=== PATIENT | female | born 1970 | race Caucasian/White ===

== ENCOUNTER 2022-02-14 14:29 | Outpatient (CLI) | payer BC, SELFPAY | END 2022-02-14 14:30 | disposition home or self-care (01) | LOC: LKVREF 02-19 12:37 | PROVIDERS: Visit Provider Nurse Practitioner Family | DX: R30.0 Dysuria (principal); N39.0 Urinary tract infection, site not specified | CPT/HCPCS: 87086; 87186 ==

== ENCOUNTER 2022-12-27 13:52 | Outpatient (CLI) | payer BC, SELFPAY | END 2022-12-27 13:53 | disposition home or self-care (01) | LOC: NFLDREF 12-28 10:40 | PROVIDERS: Visit Provider Nurse Practitioner Family | DX: R30.0 Dysuria (principal); N39.0 Urinary tract infection, site not specified | CPT/HCPCS: 87086; 87186 ==

== ENCOUNTER 2024-08-11 12:11 | Outpatient (CLI) | payer BC, SELFPAY | END 2024-08-11 12:12 | disposition home or self-care (01) | LOC: NFLDREF 08-18 17:16 | PROVIDERS: Visit Provider Physician Assistant | DX: N30.00 Acute cystitis without hematuria (principal); B96.20 Unspecified Escherichia coli [E. coli] as the cause of diseases classified elsewhere | CPT/HCPCS: 87086 ==

== ENCOUNTER 2025-01-13 12:44 | Emergency (ER) | payer BC, SELFPAY ==
--- OUTSIDE RECORDS SUMMARY | 2025-01-13 12:49 | XMS_ITS | Clinical Summary ---
Author Organization [employer] [facility] [employer] [facility] Address Formerly [facility] [place] [address] Care Team Providers Care Heat Curer Name Role Phone [facility] + Allergies No known active allergies Medications acetaminophen (TYLENOL) 325 mg tablet Take 1-2 tablets by mouth every 4 hours if needed for Pain. Max acetaminophen dose: 4000mg in 24 hrs. 100 tablet 0 3 Active oxyCODONE-acet aminophen, 5-325 mg, (PERCOCET) per tablet Take 1-2 tablets by mouth every 4 hours if needed for Pain. Max acetaminophen dose: 4000mg in 24 hrs. 30 tablet 0 3 Active Active Problems Problem Noted Date Diagnosed Date Chronic pelvic pain in female 11/03/2012 Family History Medical History Relation Name Comments Good Health Father Good Health Mother Good Health Sister Relation Name Status Comments Father Alive Mother Alive Sister Alive Social History Tobacco Use Types Packs/Day Years Used Date Smoking Tobacco: Never Smokeless Tobacco: Never Alcohol Use Standard Drinks/Week Comments Yes 0 (1 standard drink = 0.6 oz pur e alcohol) 1 drink per week Comments No Sex and Gender Information Value Date Recorded Sex Assigned at Not on file Legal Sex Female 11:41 AM CDT Gender Identity Not on file Sexual Orientation Not on file Obstetrics History Last Filed Vital Signs Vital Sign Reading Time Taken Comments Blood Pressure 145/95 03/15/2019 9:51 AM COAGULATION OPERATOR Pulse 78 03/15/2019 9:51 AM COAGULATION OPERATOR Temperature 36.3 C (97.3 F) 03/15/2019 9:51 AM COAGULATION OPERATOR Respiratory Rate 20 03/15/2019 9:51 AM COAGULATION OPERATOR Oxygen Saturation 96% 03/15/2019 9:51 AM COAGULATION OPERATOR Inhaled Oxygen Concentration - - Weight 95.3 kg (210 lb) 03/15/2019 9:51 AM COAGULATION OPERATOR Height 162.6 cm (5' 4) 03/15/2019 9:51 AM COAGULATION OPERATOR Body Mass Index 36.05 03/15/2019 9:51 AM COAGULATION OPERATOR Plan of Treatment Health Maintenance Due Date Last Done Comments Tetanus booster 10/17/1982 Depression screening for age 12+ 1983 HIV for age 15-65 10/17/1986 BMI (ht and wt on same day) for age 18+ 10/17/1989 Hepatitis C screening for age 18-79 10/17/1989 Hepatitis B series for 19+ (1 of 3 - 19+ 3-dose series ) 10/17/1990 Pap test for age 21-65 10/17/1992 Colonoscopy through age 75 10/17/2016 Lipids for age 45-75 10/17/2016 Mammogram for age 45-75 10/17/2016 Pneumococcal series for age 50+ (1 of 1 - PCV) 022 Zoster (shingles) series for age 50+ (1 of 2) 10/18/19 22 COVID-19 vaccine series ( - 2023- season) Influenza Vaccine (#1) 2024 RSV vaccine for adults or pr egnancy (1 - 1-dose 75+ series) 10/17/2046 Insurance [facility] Advance Directives * Full Code (Latest Code Status on File) Date Activated Date Inactivated Comments 11/03/2013 7:05 AM 11/04/2013 2:53 AM * Full Code Date Activated Date Inactivated Comments 10/13/2013 8:02 AM 10/14/2013 2:51 AM * Full Code Date Activated Date Inactivated Comments 11/10/2012 1:17 PM 11/11/2012 3:01 PM * Full Code Date Activated Date Inactivated Comments 11/10/2012 9:16 AM 11/10/2012 1:17 PM Care Teams Heat Curer Relationship Specialty Start Date End Date Nathalie Cespedes [id number] [place] [address] PCP - General 12/04/17
[2025-01-13 13:07] VITALS: BP 159/100; PULSE 72; RESP 18; TEMP 36.8; O2SAT 99
--- NOTE | 2025-01-13 13:10 | ED.ABDPAIN ---
HPI - Abdominal Pain General Time Seen by Provider: 13:10 Date Seen: 01/13/25 Chief Complaint: Abdominal Pain Stated Complaint: Abdominal pain Time Seen by Provider: 01/13/25 12:51 Source: patient and RN notes reviewed Mode of arrival: ambulatory Limitations: no limitations History of Present Illness HPI narrative: This 54-year-old female is coming in with complaint of right upper quadrant abdominal pain worsening over the past week. It is now constant. She took Tylenol this morning around 6:00 a.m.. She has used ibuprofen as well. These medicines will help temporarily. She has had nausea, no vomiting. She has had no concerns with stooling or urination. No recent illness or fever noted. She is status post hysterectomy. Prior to my evaluation and palpation of her abdomen, she stated this was the best she had been for while. She sat with a heating pad on, has not eaten today. She maybe thinks that the pain got worse with eating last night but really can not say if there is a temporal relationship to eating. Pain is just been there and is just getting constantly worse. She really has not noticed any change in the color or consistency of her stools. Interestingly, her just had his gallbladder out about a month ago. Besides the hysterectomy, she had to emergency C-sections and then did have an abdominoplasty. She is not aware of any family history of gallbladder issues. She does note that she feels bloated. MD elicited complaint: abdominal pain Related Data Home Medications ?Medication ?Instructions ?Recorded ?Confirmed tirzepatide (weight loss) 10 10 mg subcut QWEEK 08/11/24 01/13/25 mg/0.5 mL subcutaneous pen injector (Zepbound) Allergies Allergy/AdvReac Type Severity Reaction Status Date / Time No Known Drug Allergies Allergy Verified 01/13/25 13:07 Review of Systems Status of ROS Reports: 6 or more systems reviewed and unremarkable except as noted in History and below [facility] Medical History Urinary tract infection ?N39.0 - Urinary tract infection, site not specified (ICD-10) Dysuria ?R30.0 - Dysuria (ICD-10) Social History Smoking Status: Never smoker How often do you have a drink containing alcohol: never How often do you have six or more drinks on one occasion: Never AUDIT-C Alcohol total score: 0 Non-prescribed substance use: denies use service: No Exam Const: Vital Signs, click to edit/add: Vital Signs - 24 hr 01/13/25 13:07 Temperature 98.2 F Pulse Rate [Pulse Oximeter] 72 Respiratory Rate 18 Blood Pressure [Ri ght Upper Arm] 159/100 H Pulse Oximetry 99 Oxygen Delivery Me thod Room Air This 54-year-old female is alert, interactive, no apparent distress, lying in the bed in exam room 3. Sclera clear, conjugate gaze, symmetric facial function, speech is normal. Lungs are clear, good air entry, no wheezing or crackles, no tachypnea, no accessory muscle use. CV regular rate and rhythm, no murmur, normal S1-S2, no S3-S4. Abdomen is soft, does not appear distended but moderately obese, normal bowel sounds. She has mild epigastric tenderness but definite right upper quadrant tenderness with some rebound but not guarding at this time. I do not feel any organomegaly or masses. Documenting provider has reviewed patient's vital signs: yes Course Course ED Course: Will place an IV, will initiate some Toradol and Zofran for symptom control. She will get a right upper quadrant ultrasound. Will look at appropriate labs. If her lipase is elevated, will need CT imaging as well. She very likely has biliary colic, could be cholecystitis verses cholelithiasis. Need to consider choledocholithiasis and pancreatitis as well. Presumably this could be hepatic can be hepatitis but doubtful based on her history, seems more biliary in nature. Reevaluation(s) Time of Reevaluation #1: 14:55 Reevaluation #1: Have reviewed her ultrasound and labs, they are completely normal. She states she feels minimally better, she states it is hurting to breathe, she tells me now that she originally thought she just pulled muscle. If she moves sometimes she can feel it but she still has the significant right upper quadrant pain with palpation. I cannot identify any paraspinous muscle tenderness, no rash over her back, no palpable flank tenderness. We have discussed doing abdominal imaging with CT, will do chest CT PE protocol given her symptoms. She is in agreement with this plan. We will also do a lab add on troponin Scott sure were not missing any cardiac manifestations of disease. If there would be a pulmonary embolus, would want a troponin for identifying cardiac strain. Time of Reevaluation #2: 16:22 Reevaluation #2: Have reviewed the CT imaging with patient. Did provider copies of this. She understands that she will need follow-up imaging with thyroid ultrasound and liver MRI. As far as her right chest wall and abdominal wall symptoms, she really believes that they are probably musculoskeletal. Will go ahead and treat as such. Were going to do a course of prednisone and muscle relaxant in case this is neuropathic. Will have her watch for rash and seek re-evaluation if it does develop. Otherwise she is to follow up in clinic with her primary care provider. Vital Signs Vital signs: Initial Vital Signs Temperature 98.2 F 01/13/25 13:07 Temperature Source Temporal Artery Scan 01/13/25 13:07 Pulse Rate 72 01/13/25 13:07 Pulse Rhythm Regular 01/13/25 13:07 Respiratory Rate 18 01/13/25 13:07 Blood Pressure 159/100 H 01/13/25 13:07 Blood Pressure Mean 119 H 01/13/25 13:07 Blood Pressure Position Semi-Fowlers 01/13/25 13:07 Pulse Oximetry 99 01/13/25 13:07 Oxygen Delivery Method Room Air 01/13/25 13:07 Vital Signs Temperature 98.2 F 01/13/25 13:07 Pulse Rate 72 01/13/25 13:07 Respiratory Rate 18 01/13/25 13:07 Blood Pressure 159/100 H 01/13/25 13:07 Pulse Oximetry 99 01/13/25 13:07 Oxygen Delivery Method Room Air 01/13/25 13:07 Temperature 98.2 F 01/13/25 13:07 Pulse Rate 72 01/13/25 13:07 Respiratory Rate 18 01/13/25 13:07 Blood Pressure 159/100 H 01/13/25 13:07 Pulse Oximetry 99 01/13/25 13:07 Oxygen Delivery Method Room Air 01/13/25 13:07 Medications Administered Medications: Discontinued Medications Generic Name Dose Route Start Last Admin Trade Name Freq PRN Reason Stop Dose Admin Ketorolac Tromethamine 15 mg 01/13/25 13:14 01/13/25 14:03 Ketorolac 15 Mg/Ml Inj IVP 01/13/25 13:15 15 mg ONCE ONE Administration Ondansetron HCl 4 mg 01/13/25 13:14 01/13/25 14:03 Ondansetron 2 Mg/Ml Inj IVP 01/13/25 13:15 4 mg ONCE ONE Administration MDM - Abdominal Pain Lab Data Attestation: I reviewed the patient's lab results. Labs: Lab Results 01/13/25 01/13/25 Range/Units 13:51 13:58 WBC 5.78 (4.50-11.00) K/uL RBC 5.12 (4.00-5.20) m/uL Hgb 14.5 (12.0-16.0) gm/dL Hct 42.3 (33.0-51.0) % MCV 83 (80-100) fL MCH 28 (26-34) pg MCHC 34 (32-36) gm/dL RDW Coeff of Gillian 12.1 (11.5-15.5) % Plt Count 263 (140-440) K/uL Neut % (Auto) 54.1 (42.0-72.0) % Lymph % (Auto) 36.5 (20-44) % [place] % (Auto) 6.1 (0.0-11.0) % Eos % (Auto) 2.8 (0.0-7.0) % Baso % (Auto) 0.3 (0.0-3.0) % Neut # (Auto) 3.13 (1.7-7.0) K/uL Lymph # (Auto) 2.11 (0.90-2.90) K/uL [place] # (Auto) 0.40 (0.00-0.90) K/UL Eos # (Auto) 0.16 (0.00-0.50) K/uL Baso # (Auto) 0.02 (0.00-0.30) K/uL Abs Immat Gran (auto) 0.01 (0.00-0.30) K/uL Imm/Tot Granulo (auto) 0.2 % Sodium 136 (135-149) mmol/L Potassium 4.0 (3.6-5.1) mmol/L Chloride 101 (96-114) mmol/L Carbon Dioxide 25 (20-32) mmol/L Anion Gap 10 (7-15) mEq/L BUN 15 (7-30) mg/dL Creatinine 0.8 (0.5-1.5) mg/dL Estimated GFR 88 ml/min Glucose 92 (60-115) mg/dL Lactate 0.6 (0.5-1.9) mmol/L Calcium 9.2 (8.4-10.6) mg/dL Total Bilirubin 0.6 (0.1-1.5) mg/dL Direct Bilirubin 0.2 (0.0-0.5) mg/dL AST 26 (12-35) U/L ALT 17 (4-35) U/L Alkaline Phosphatase 98 (40-150) U/L C-Reactive Protein 0.6 (0.5-1.0) mg/dL Total Protein 8.2 (6.0-8.3) g/dL Albumin 4.6 (3.3-5.0) g/dL Lipase 72 (23-300) U/L Urine Color Yellow (Yellow) Urine Appearance Clear (Clear) Urine pH 6.5 (5.0-8.5) Ur Specific [place] 1.020 (1.000-1.030) Urine Protein Negative (Negative) Urine Glucose (UA) Negative (Negative) Urine Ketones Negative (Negative) Urine Blood Negative (Negative) Urine Nitrite Negative (Negative) Urine Bilirubin Negative (Negative) Urine Urobilinogen 0.2 (0.2-1.0) Ur Leukocyte Esterase Negative (Negative) Urine RBC 0-2 (0-2) Urine WBC 2-5 (0-5) Ur Squamous Epith Cells None (None-Few) Urine Bacteria None (None) Imaging Data US - abdomen: Attestation: I have reviewed the pertinent imaging results. Radiologist's impression: Patient: LUIS ALBERTO VIRAMONTES Facility:?[facility] Patient ID:?[id number] Site Patient ID:?[id number]. Site :?1970 Study:?US-Abdomen RUQ-01/13/2025 1:45:05 PM Ordering Physician:Lang Keller Final Report: INDICATION: RUQ PAIN COMPARISON: None TECHNIQUE: Ultrasound abdomen complete. Real time santillan scale imaging and color Doppler analysis was performed of the abdomen. FINDINGS: Liver: The liver is normal in size measuring 15.4 cm in length. Diffuse minimally increased echogenicity of the liver. There are numerous well-circumscribed hyperechoic lesions in the liver, the largest of which is in the right hepatic lobe measuring 2.9 x 3.8 x 2.7 centimeters, with imaging characteristics suggestive of benign hepatic hemangiomas. Gallbladder: No stones or sludge. No wall thickening or pericholecystic fluid. Negative sonographic March sign. Bile ducts: The common bile duct measures 5 mm in diameter. Pancreas: Normal where seen. Right kidney: The right kidney measures 11 cm in length. No hydronephrosis, calculus, or mass. Vascular: Normal caliber abdominal aorta where imaged. The IVC appears patent. The main portal vein is patent with normal flow direction. IMPRESSION: 1. No sonographic evidence of cholelithiasis or acute cholecystitis. 2. Diffuse minimally increased echogenicity of the liver, suggestive of very mild hepatic steatosis. 3. Numerous well-circumscribed hyperechoic lesions in the liver with imaging characteristics suggestive of benign hepatic hemangiomas. Recommend correlation with history and prior imaging if available; otherwise, recommend nonurgent/outpatient CT or MR with a liver protocol for further characterization. Dictated by Matteo Goins MD @ 01/13/2025 1:54:15 PM (Electronic Signature) CT scan - chest: Attestation: I have reviewed the pertinent imaging results. Radiologist's impression: Patient: LUIS ALBERTO VIRAMONTES Facility:?[facility] Patient ID:?[id number] Site Patient ID:?[id number]. Site :?1970 Study:?CT-Chest Angio W/ 95CC ISOVUE-370 PE PROTOCOL-01/13/2025 3:25:27 PM Ordering Physician:?Vilma Keller Final Report: INDICATION: Pleuritic right chest pain TECHNIQUE: CT chest PE was acquired with 95 cc Isovue 370 IV contrast. Axial maximum intensity projection reformatted images were performed on the scanner. COMPARISON: None. FINDINGS: Heart and vasculature: Contrast opacification of the pulmonary arterial tree is adequate. No sign of pulmonary embolism. Heart size is normal. Thoracic aorta and pulmonary artery are normal in caliber. Lungs and pleura: No pleural effusion or pneumothorax. Trace basilar discoid atelectasis. Lymph nodes/mediastinum: No mediastinal or hilar lymphadenopathy. Chest wall: Substernal hypodense lesion at the inferior margin of the thyroid gland measuring up to 2.9 centimeters (4, 27). Bones: Unremarkable for age. IMPRESSION: 1. No evidence of pulmonary embolus. 2. Substernal hypodense lesion adjacent to the inferior margin of the left lobe of the thyroid measuring 2.9 centimeters. Suspect substernal thyroid nodule. Suggest follow-up outpatient thyroid ultrasound for further characterization. Please note that all CT scans at this facility use dose modulation, iterative reconstruction, and/or weight-based dosing when appropriate to reduce radiation dose to as low as reasonably achievable. Dictated by Darron Vidal MD @ 01/13/2025 3:53:05 PM (Electronic Signature) CT scan - abdomen: Attestation: I have reviewed the pertinent imaging results. Radiologist's impression: Patient: LUIS ALBERTO VIRAMONTES Facility:?[facility] Patient ID:?[id number] Site Patient ID:?[id number]. Site :?1970 Study:?CT-Abdomen/Pelvis W/ 95CC [id number]/22/2025 3:25:22 PM Ordering Physician:Lang Keller Final Report: INDICATION: Liver lesions on ultrasound TECHNIQUE: Axial images were obtained from the diaphragm to the pubic symphysis. Reformats were obtained in the coronal and sagittal plane. IV Contrast: 95 cc Isovue 370 Oral Contrast: None COMPARISON: Ultrasound 01/13/2025 FINDINGS: Liver: Hypodense liver lesions measuring 1.1 centimeters within the margin of segment 2, 3.2 centimeters within segment 8, 1.0 centimeters within segment 3. Largest lesion shows some areas of nodular enhancement. Gallbladder and bile ducts: Unremarkable. No stones or inflammation. No biliary dilatation. Spleen: Unremarkable. Normal in size without mass. Pancreas: Unremarkable. No mass or inflammation. Adrenal glands: Unremarkable. No nodules. Kidneys: Unremarkable. No masses, stones, or hydronephrosis. Vasculature: Unremarkable. GI tract: The stomach is unremarkable. No dilated loops of large or small intestine. Unremarkable appendix. Intramuscular lipoma at the lateral margin of the right rectus abdominis muscle measuring 9.1 x 2.6 centimeters. Mild colonic diverticulosis. Pelvis: Status post hysterectomy. Bones: Degenerative disc disease lumbar spine. IMPRESSION: 1. Mild colonic diverticulosis without CT evidence of diverticulitis. 2. Multiple liver lesions as mentioned above. Characterization is limited given the single phase nature of the examination. Largest lesion does have some peripheral nodular enhancement which is suggestive of although not diagnostic for hemangiomata. Smallest lesions are considered indeterminate. Suggest follow-up outpatient dedicated liver MRI for further characterization. 3. Intramuscular lipoma at the lateral margin of the right rectus abdominus musculature. Please note that all CT scans at this facility use dose modulation, iterative reconstruction, and/or weight-based dosing when appropriate to reduce radiation dose to as low as reasonably achievable. Dictated by Darron Vidal MD @ 01/13/2025 4:10:03 PM (Electronic Signature) Discharge Plan Discharge Clinical Impression: Chest pain, pleuritic, Right upper quadrant abdominal pain Patient Disposition: Home, Self-Care Condition: Stable Instructions: Musculoskeletal Pain (ED), Thoracic Pain (ED) Additional Instructions: The workup done is not eluting the etiology of your pain. Do agree that this certainly could be musculoskeletal. Will try course of prednisone and Flexeril, this would treat for nerve pain and as well as muscle spasms. Do watch the area for rash, if rash does developed than this certainly could be prodromal pain before shingles. If you do develop a rash, need to be seen for treatment of shingles. Otherwise, fine to take Tylenol and ibuprofen per bottle directions. You do need to schedule follow-up in clinic with your primary within the next week or as soon as possible. Need to bring in the imaging reports with you. You do need to get scheduled for a follow-up thyroid ultrasound and liver MRI protocol outpatient to further characterize the incidental findings on your imaging done here today. If at any 0.2 believe your worsening, develops new or concerning symptoms, please seek re-evaluation. Prednisone will be 20 mg twice a day for 5 days. The Flexeril is 10 mg up to 3 times a day as needed, 15 tablets prescribed. Activity Level: Activity as Tolerated Discharge Diet: Regular Prescriptions: No Action Zepbound 10 mg/0.5 mL pen injector 10 mg subcut QWEEK Follow Up/Referrals: Provider,Not a Local [Primary Care Provider, Family Practice] Stand Alone Forms: [employer] Info Instructions
--- NOTE | 2025-01-13 13:14 | CRLHL7_ITS ---
For Patients: As a result of the Century Cures Act, medical imaging exams and procedure reports are released immediately into your electronic medical record. You may view this report before your referring provider. If you have questions, please contact your health care provider. INDICATION: RUQ PAIN COMPARISON: None TECHNIQUE: Ultrasound abdomen complete. Real time santillan scale imaging and color Doppler analysis was performed of the abdomen. FINDINGS: Liver: The liver is normal in size measuring 15.4 cm in length. Diffuse minimally increased echogenicity of the liver. There are numerous well-circumscribed hyperechoic lesions in the liver, the largest of which is in the right hepatic lobe measuring 2.9 x 3.8 x 2.7 centimeters, with imaging characteristics suggestive of benign hepatic hemangiomas. Gallbladder: No stones or sludge. No wall thickening or pericholecystic fluid. Negative sonographic March sign. Bile ducts: The common bile duct measures 5 mm in diameter. Pancreas: Normal where seen. Right kidney: The right kidney measures 11 cm in length. No hydronephrosis, calculus, or mass. Vascular: Normal caliber abdominal aorta where imaged. The IVC appears patent. The main portal vein is patent with normal flow direction. IMPRESSION: 1. No sonographic evidence of cholelithiasis or acute cholecystitis. 2. Diffuse minimally increased echogenicity of the liver, suggestive of very mild hepatic steatosis. 3. Numerous well-circumscribed hyperechoic lesions in the liver with imaging characteristics suggestive of benign hepatic hemangiomas. Recommend correlation with history and prior imaging if available; otherwise, recommend nonurgent/outpatient CT or MR with a liver protocol for further characterization. Dictated by Matteo Goins MD @ 01/13/2025 1:54:15 PM (Electronically Signed)
[2025-01-13 13:57] LABS: Lactate* 0.6 mmol/L (0.5-1.9)
[2025-01-13 13:58] LABS: Hematocrit* 42.3 % (33.0-51.0); Hemoglobin* 14.5 gm/dL (12.0-16.0); Immature Granulocytes Abs Auto 0.01 K/uL (0.00-0.30); Immature Granulocytes Pct Auto 0.2 %; Lymphocytes Absolute Auto 2.11 K/uL (0.90-2.90); Mean Corpuscular HGB Conc 34 gm/dL (32-36); Mean Corpuscular Hemoglobin 28 pg (26-34); Mean Corpuscular Volume 83 fL (80-100); RDW Coefficient of Variation % 12.1 % (11.5-15.5); Red Blood Count* 5.12 m/uL (4.00-5.20); White Blood Count* 5.78 K/uL (4.50-11.00)
[2025-01-13] MEDS: ONDANSETRON 2 MG/ML inj 4 MG IVP (14:03)
[2025-01-13 14:14] LABS: Albumin* 4.6 g/dL (3.3-5.0); Chloride* 101 mmol/L (96-114)
[2025-01-13 14:15] LABS: Potassium* 4.0 mmol/L (3.6-5.1); Sodium* 136 mmol/L (135-149)
[2025-01-13 14:16] LABS: Slide Review Reflex No
[2025-01-13 14:17] LABS: Blood Urea Nitrogen* 15 mg/dL (7-30); Creatinine* 0.8 mg/dL (0.5-1.5); Estimated Glomerular Filt Rate 88 ml/min
[2025-01-13 14:18] LABS: Alanine Aminotransferase* 17 U/L (4-35); Alkaline Phosphatase* 98 U/L (40-150); Anion Gap 10 mEq/L (7-15); Aspartate Amino Transferase* 26 U/L (12-35); Bilirubin Direct* 0.2 mg/dL (0.0-0.5); Bilirubin Total* 0.6 mg/dL (0.1-1.5); Calcium* 9.2 mg/dL (8.4-10.6); Carbon Dioxide* 25 mmol/L (20-32); Glucose* 92 mg/dL (60-115); Total Protein* 8.2 g/dL (6.0-8.3)
[2025-01-13 14:24] LABS: Appearance Urine Clear (Clear)
--- NOTE | 2025-01-13 14:55 | CRLHL7_ITS ---
For Patients: As a result of the Century Cures Act, medical imaging exams and procedure reports are released immediately into your electronic medical record. You may view this report before your referring provider. If you have questions, please contact your health care provider. INDICATION: Liver lesions on ultrasound TECHNIQUE: Axial images were obtained from the diaphragm to the pubic symphysis. Reformats were obtained in the coronal and sagittal plane. IV Contrast: 95 cc Isovue 370 Oral Contrast: None COMPARISON: Ultrasound 01/13/2025 FINDINGS: Liver: Hypodense liver lesions measuring 1.1 centimeters within the margin of segment 2, 3.2 centimeters within segment 8, 1.0 centimeters within segment 3. Largest lesion shows some areas of nodular enhancement. Gallbladder and bile ducts: Unremarkable. No stones or inflammation. No biliary dilatation. Spleen: Unremarkable. Normal in size without mass. Pancreas: Unremarkable. No mass or inflammation. Adrenal glands: Unremarkable. No nodules. Kidneys: Unremarkable. No masses, stones, or hydronephrosis. Vasculature: Unremarkable. GI tract: The stomach is unremarkable. No dilated loops of large or small intestine. Unremarkable appendix. Intramuscular lipoma at the lateral margin of the right rectus abdominis muscle measuring 9.1 x 2.6 centimeters. Mild colonic diverticulosis. Pelvis: Status post hysterectomy. Bones: Degenerative disc disease lumbar spine. IMPRESSION: 1. Mild colonic diverticulosis without CT evidence of diverticulitis. 2. Multiple liver lesions as mentioned above. Characterization is limited given the single phase nature of the examination. Largest lesion does have some peripheral nodular enhancement which is suggestive of although not diagnostic for hemangiomata. Smallest lesions are considered indeterminate. Suggest follow-up outpatient dedicated liver MRI for further characterization. 3. Intramuscular lipoma at the lateral margin of the right rectus abdominus musculature. Please note that all CT scans at this facility use dose modulation, iterative reconstruction, and/or weight-based dosing when appropriate to reduce radiation dose to as low as reasonably achievable. Dictated by Darron Vidal MD @ 01/13/2025 4:10:03 PM (Electronically Signed)
--- NOTE | 2025-01-13 14:55 | CRLHL7_ITS ---
For Patients: As a result of the Century Cures Act, medical imaging exams and procedure reports are released immediately into your electronic medical record. You may view this report before your referring provider. If you have questions, please contact your health care provider. INDICATION: Pleuritic right chest pain TECHNIQUE: CT chest PE was acquired with 95 cc Isovue 370 IV contrast. Axial maximum intensity projection reformatted images were performed on the scanner. COMPARISON: None. FINDINGS: Heart and vasculature: Contrast opacification of the pulmonary arterial tree is adequate. No sign of pulmonary embolism. Heart size is normal. Thoracic aorta and pulmonary artery are normal in caliber. Lungs and pleura: No pleural effusion or pneumothorax. Trace basilar discoid atelectasis. Lymph nodes/mediastinum: No mediastinal or hilar lymphadenopathy. Chest wall: Substernal hypodense lesion at the inferior margin of the thyroid gland measuring up to 2.9 centimeters (4, 27). Bones: Unremarkable for age. IMPRESSION: 1. No evidence of pulmonary embolus. 2. Substernal hypodense lesion adjacent to the inferior margin of the left lobe of the thyroid measuring 2.9 centimeters. Suspect substernal thyroid nodule. Suggest follow-up outpatient thyroid ultrasound for further characterization. Please note that all CT scans at this facility use dose modulation, iterative reconstruction, and/or weight-based dosing when appropriate to reduce radiation dose to as low as reasonably achievable. Dictated by Darron Vidal MD @ 01/13/2025 3:53:05 PM (Electronically Signed)
== END 2025-01-13 16:39 | disposition home or self-care (01) ==
PROVIDERS: Emergency Provider Family Medicine
DX: R10.11 Right upper quadrant pain (principal); R07.9 Chest pain, unspecified
CPT/HCPCS: 36415; 71275; 74177; 76705; 80048; 80076; 81001; 83605; 83690; 84484; 85025; 86140; 96374; 96375; 99285; J1885; J2405; Q9967